=== PATIENT | female | born 1985 | race Caucasian/White ===

== ENCOUNTER → 2018-09-15 | Outpatient (CLI) | payer OTHER ==
[2018-09-15 13:17] VITALS: BP 110/72; PULSE 72; RESP 16; TEMP 98.5; BMI 44.8
--- NOTE | 2018-09-15 13:46 | P.GSHP ---
History of Present Illness H&P Date: 09/15/18 Chief Complaint: abnormal ultrasound of the left breast The patient is a 32 year old white female who is status post bilateral breast reduction at the age of 18. She also had a right breast lesion removed at 17. The patient approximately 3 months ago noted shooting pain to her left nipple. She is uncertain of anything that precipitated the pain. She states that when she was seen in her primary care physician's office there was some nodularity noted in her left breast. The patient herself is uncertain as to where the pain starts in the breast, she has decreased sensation since the bilateral reduction mammoplasty. The patient has no abnormal nipple discharge. Patient has no evidence of any skin changes. No history of any trauma or infection in the breast recently. The pain is not related to her periods. It is sparadic. The pain is mild, 1-2 on a scale of 1-10. The patient has had 4 babies and was unable to breast-feed. The patient drinks 5 cans of Pepsi/day, no tea or coffee. She does not smoke, although she is exposed to second hand smoke. She eats little chocolate. She is not taking bitrth control pills or hormones. She did have an ultrasound of the left breast and this revealed a 0.8 x 0.9 x 1.4 cm lesion in the left breast for which a core biopsy was recommended. She did not have a mammogram. She did not have any radiographic evaluation of the right breast. Family history: 1. paternal uncle: lung cancer Hormonal history: Menarche:14 , breast fed: no, first at 20 periods regular BCP: none hormones:none Past surgical history: 1. Bilateral breast reduction 2. Right breast biopsy Past Medical History: none Social History: smoke: none alcohol: none drugs: none - Constitutional Constitutional: Denies chills, Denies fever - EENT Eyes: denies blurred vision, denies pain Ears: deny: decreased hearing, tinnitus Ears, nose, mouth and throat: Denies headache, Denies sore throat - Breasts Breasts: bilateral: as per HPI - Cardiovascular Cardiovascular: Denies chest pain, Denies shortness of breath - Respiratory Respiratory: Denies cough, Denies 7 - Gastrointestinal Gastrointestinal: Denies abdominal pain, Denies diarrhea, Denies nausea, Denies vomiting - Genitourinary (Female) Genitourinary: Denies dysuria, Denies hematuria - Menstruation Menstruation: Reports period normal - Musculoskeletal Musculoskeletal: Denies myalgias - Integumentary Integumentary: Denies pruritus, Denies rash - Neurological Neurological: Denies numbness, Denies weakness - Psychiatric Psychiatric: Denies anxiety, Denies depression - Endocrine Endocrine: Reports fatigue, Reports weight change - Hematologic/Lymphatic Comment: none - Allergic/Immunologic Comment: none Past Medical History Past Medical History: No Reported History History of Any Multi-Drug Resistant Organisms: None Reported Past Surgical History: Breast Surgery Additional Past Surgical History / Comment(s): Patient has had a bilateral breast reductive surgery and a right breast mass biopsied. Past Anesthesia/Blood Transfusion Reactions: No Reported Reaction Past Psychological History: No Psychological Hx Reported Smoking Status: Never smoker Past Alcohol Use History: None Reported Past Drug Use History: None Reported - Past Family History Mother Family Medical History: No Reported History Medications and Allergies Home Medications Medication Instructions Recorded Confirmed Type Cyanocobalamin (Vitamin B-12) 5,000 mcg PO 09/15/18 History [Vitamin B-12] Allergies Allergy/AdvReac Type Severity Reaction Status Date / Time No Known Allergies Allergy Verified 09/15/18 13:10 Surgical - Exam Vital Signs Temp Pulse Resp BP Pulse Ox 98.5 F 72 16 110/72 99 09/15/18 13:11 09/15/18 13:11 09/15/18 13:11 09/15/18 13:11 09/15/18 13:11 BMI 44.8 - General obese - Eyes normal ocular movement - ENT no hearing loss, no congestion - Neck no masses, trachea midline - Respiratory normal expansion, normal respiratory effort, clear to percussion, clear to auscultation - Cardiovascular Rhythm: regular Heart Sounds: normal: S1, S2 - Abdomen Abdomen: soft, non tender, no guarding, no rigid, no rebound - Integumentary normal turgor - Neurologic no disoriented, no combative - Musculoskeletal normal gait, normal posture - Psychiatric oriented to time, oriented to person, oriented to place, speech is normal, memory intact breast exam: Right breast: Multiple positional exam fibrocystic changes, changes related to scar tissue from reduction mammoplasty Lateral aspect of the breast reveals a dark nevus which is been recommended be removed Right axilla: No adenopathy of concern Left breast: Multi-positional exam fibrocystic changes, changes related to scar tissue from reduction mammoplasty Left axilla: No adenopathy of concern Results Ultrasound results reviewed Assessment and Plan Assessment: Impression: 1. Ultrasound abnormality left breast 2. Status post bilateral reduction mammoplasty, she was larger than a 44DDD, she is now a 38 DD 3. Shooting pain left breast 4. Family history of cancer 5. Skin lesion right breast with some concern We have discussed the causes of breast pain. We discussed that caffeine may be related to her discomfort. And also to secondhand smoke may be related to the discomfort. She has been provided a book regarding breast pain. She is encouraged to stop caffeine intake. Plan: 1. Bilateral mammogram 2. Ultrasound core biopsy of left breast 3. Excision of skin lesion in the office 4. Follow-up after ultrasound of the left breast Cc: Dr. Chela Watson, Zaynab Choudhary N.P.
== END | disposition home or self-care (01) ==
LOC: WWCWWP 13:04
PROVIDERS: ATTEND Surgery
DX: Z53.9 Procedure and treatment not carried out, unspecified reason (principal)

== ENCOUNTER → 2018-10-10 | Outpatient (CLI) | payer OTHER ==
--- NOTE | 2018-10-10 09:51 | MM ---
Reason for exam: clinical finding. Lump or Thickening in left breast. History: Bilateral breast reduction in 2001. Right breast excisional (bnign) 2001 Physical Findings: Nurse did not find any significant physical abnormalities on exam. MG Diagnostic Mammo w CAD ROSE MARY Bilateral CC, MLO, and spot compression CC view(s) were taken. LM view(s) were taken of the left breast. No prior studies available for comparison. There are scattered fibroglandular densities. Bilateral mammoplasty changes. Lateral posterior asymmetric density right CC view. Left lower inner quadrant focal asymmetry likely related to mammoplasty changes but a 6 month follow up is recommended. Scattered round dermal calcifications. Patients outside ultrasound is reviewed. No mammographic correlate for the ultrasound finding at the site of pain. A 2ND look left inner quadrant ultrasound will be performed. ASSESSMENT: Incomplete: need additional imaging evaluation, BI-RAD 0 Incomplete: need additional imaging evaluation, BI-RAD 0 of the left breast. Probably benign, BI-RAD 3 finding in the right breast. RECOMMENDATION: Ultrasound of the left breast. Follow-up diagnostic mammogram of the right breast in 6 months.
--- NOTE | 2018-10-10 10:06 | USB ---
Reason for exam: clinical finding. US Breast Limited LT Left breast limited breast ultrasound including focal area of concern, retroareolar and axilla demonstrates a mixed hypoechoic lesion at 6 o'clock measuring 1.4cm x 1.6cm x 0.8cm irregular shaped. This is directly underlying the patients scar. It has a comma - shaped appearance and corresponds to the area seen at 4 o'clock on outside ultrasound. Likely also corresponds to the mammographic findings. At the axilla there is a benign oval node that measures 2.4 x 2.1 x 1.3 cm. ASSESSMENT: Probably benign, BI-RAD 3 RECOMMENDATION: Ultrasound of the left breast in 6 months.
== END | disposition home or self-care (01) ==
LOC: RADMAMWWP 07:07
PROVIDERS: ATTEND Surgery
DX: R92.8 Other abnormal and inconclusive findings on diagnostic imaging of breast (principal)
CPT/HCPCS: 77066

== ENCOUNTER → 2020-12-18 | Outpatient (CLI) | payer OTHER ==
--- NOTE | 2020-12-18 11:34 | CONS ---
CONSULTATION DATE OF SERVICE: 12/18/2020 This 34-year-old lady has been evaluated in [facility] for possible obstructive sleep apnea-hypopnea syndrome. HISTORY OF PRESENT ILLNESS/SLEEP-WAKE EVALUATION: Patient's usual sleep schedule is from 10:30 p.m. to 5:30 or 5:40 a.m. on weekdays and from 11 p.m. to 7 a.m. on weekends. No problems with falling asleep. No TV in bedroom. The patient usually sleeps on the side position, with loud snoring and witnessed episodes of stopped breathing during sleep. The patient has awakenings from sleep with snoring, choking and nocturia 2 times per night. No history of hypnagogic hallucinations, sleep paralysis or cataplexy. During the day, the patient feels very sleepy. Gilman Sleepiness Scale is in very high range of 19. She also has problems with memory and irritability. PAST MEDICAL HISTORY: Mostly negative. PAST SURGICAL HISTORY: Breast reduction surgery and surgery to remove a lump from the right breast. SOCIAL HISTORY: Negative for smoking or using alcohol. MEDICATIONS: None. FAMILY HISTORY: Positive for sleep apnea in her mother. Thyroid problems and asthma in the family. REVIEW OF SYSTEMS: No fevers. No double vision. No recent chest pain. No shortness of breath. No abdominal pain. No bleeding episodes. No blood in the urine. No seizure episodes. Multiple awakenings from sleep, significant excessive daytime sleepiness, loud snoring. PHYSICAL EXAMINATION: GENERAL: Pleasant lady without distress. VITAL SIGNS: BP 116/78, HR 73, RR 12, height 5 feet and 3 inches, weight 261.2 pounds, body mass index 46.2, temperature 97.6, oxygen saturation at room air 96%. HEENT: PERRLA, EOMI, evaluation of oropharynx showed tongue protrudes midline. Wide pillars. Mallampati II. NECK: Supple, no JVD. Thyroid is not palpable. Neck is wide; 17 inches in circumference. LUNGS: Clear to percussion and to auscultation. Good air exchange. No wheezing or rhonchi. HEART: S1, S2 regular. No murmurs, gallops, or rubs. ABDOMEN: Obese. EXTREMITIES: No clubbing or cyanosis. BEAD FLIPPER: Awake, alert, and oriented X3. Cranial nerves 2 to 7 intact. There is no fasciculation or atrophy. noted. No focal deficits observed. IMPRESSION: 1. Loud snoring, witnessed episodes of stopped breathing during sleep, awakenings from sleep with choking and nocturia, wide neck, 17 inches in circumference, extremely high Gilman Sleepiness Scale, sleepiness; obstructive sleep apnea-hypopnea syndrome. 2. Gilman Sleepiness Scale is 19, which dictates necessity to include narcolepsy and idiopathic hypersomnia in differential diagnosis. 3. Obesity; body mass index 46.2. 4. Status post breast reduction. 5. Status post right breast lump removed. PLAN: 1. Polysomnography for evaluation of patient's breathing during sleep. 2. CPAP/BiPAP titration if sleep study confirms obstructive sleep apnea-hypopnea syndrome. 3. Preferable position during sleep on the side. 4. No driving if patient feels any sleepiness. 5. I will see patient for follow up visit to explain results of testing and following plan. Thank you very much for referring this patient for consultation. Sincerely, Raza German MD, PhD, FAASM Diplomat of [employer] Sleep Medicine Board of [employer] Specialist [facility] MMODL / SASHAN: [id number] /
== END ==
LOC: SLEEP 10:10
PROVIDERS: ATTEND Internal Medicine
DX: G47.33 Obstructive sleep apnea (adult) (pediatric) (principal); R35.1 Nocturia; E66.9 Obesity, unspecified; Z68.42 Body mass index [BMI] 45.0-49.9, adult; Z98.890 Other specified postprocedural states
CPT/HCPCS: 99211

== ENCOUNTER → 2023-06-03 | Outpatient (CLI) | payer OTHER ==
--- NOTE | 2023-06-03 22:49 | US ---
EXAMINATION TYPE: US abdomen limited DATE OF EXAM: 06/03/2023 COMPARISON: NONE CLINICAL INDICATION: Female, 37 years old with history of R22.2 SWELLING MASS LUMP R10.11 R UP QUAD P AIN; "bulging" area of concern at epigastric region. Assess for hernia at location of: upper abdominal/ epigastric region TECHNIQUE: Real-time scanning was performed by the communications operator utilizing Valsalva and additional dyn amic maneuvers to assess for hernia. Operations Leader notes: Limited due to patient body habitus FINDINGS AND IMPRESSION: Patients AOC scanned, no evidence of hernia seen with ultrasound today.
--- NOTE | 2023-06-03 22:50 | US ---
EXAMINATION TYPE: US gallbladder DATE OF EXAM: 06/03/2023 COMPARISON: NONE CLINICAL INDICATION: Female, 37 years old with history of R22.2 SWELLING MASS LUMP R10.11 R UP QUAD P AIN; RUQ pain after eating TECHNIQUE: Multiple sonographic images of the right upper quadrant are obtained. FINDINGS: EXAM MEASUREMENTS: Liver Length: 18.1 cm Gallbladder Wall: 0.2 cm CBD: 0.3 cm Right Kidney: 14.4 x 4.9 x 5.5 cm INFORMATION SYSTEMS SPECIALIST NOTES:*Limited due to bowel gas and patient body habitus Pancreas: Tail obscured by overlying bowel gas Liver: wnl Gallbladder: No stones seen. Wall WNL. Evidence for sonographic Gannon's sign: No CBD: wnl Right Kidney: Prominent in size likely normal variation if the patient is tall. No hydronephrosis or masses seen. IMPRESSION: No gallstones or biliary ductal dilatation.
== END | disposition home or self-care (01) ==
LOC: RADUSWWP 06:58
PROVIDERS: ATTEND Surgery Plastic and Reconstructive Surgery
DX: R22.2 Localized swelling, mass and lump, trunk (principal); R10.11 Right upper quadrant pain
CPT/HCPCS: 76705

== ENCOUNTER 2023-12-26 22:53 | Emergency (ER) | payer OTHER ==
[2023-12-26 22:59] VITALS: RESP 18; TEMP 98.3
--- NOTE | 2023-12-26 23:25 | ED ---
General Adult HPI - General Chief complaint: Chest Pain Stated complaint: Anxiety Time Seen by Provider: 12/26/23 22:58 Source: patient, EMS Mode of arrival: EMS Limitations: no limitations - History of Present Illness Initial comments: Patient is a 38-year-old female no significant past medical history presenting today for chest pain. Describes it as squeezing pain that comes on randomly. Has been happening for the last 48 hours. Yesterday the [place] [address] and had to tap puller due to onset of chest pain. She sat with EMS crew and did deep breathing which improved her symptoms, then was taken to [facility] for further workup. There patient had ultrasound her left lower extremity done for DVT, as she has swelling in her left lower extremity for the last week, which was negative. Does state that she has had a previous injury to the left ankle and has been on her feet more than usual over the last week. States that no EKG or further imaging or blood work was done yesterday. Today while sitting at dinner chest tightness return, she felt lightheaded, felt tingling go down her arms. Chest tightness does not radiate to the back. She denies fever, chills, cough, hemoptysis, nasuea, vomiting, diarrhea, abdominal pain. Did feel sweaty with onset of symptoms. Patient is a non-smoker and has no history of hyperlipidemia, hypertension or diabetes. Patient's father did have a heart attack at the age of 53. No other history of prior CVA or AL in first-degree family members. Patient does states she is in an increased amount of stress recently as her son was just diagnosed with a brain tumor this week and her had to relocate for work so she is the sole caregiver for her 4 children currently. - Related Data Home Medications Medication Instructions Recorded Confirmed Cyanocobalamin (Vitamin B-12) 5,000 mcg PO 09/15/18 [Vitamin B-12] Previous Rx's Medication Instructions Recorded hydrOXYzine HCL 10 mg PO Q6H PRN 3 Days #10 tab 12/27/23 Allergies Allergy/AdvReac Type Severity Reaction Status Date / Time No Known Allergies Allergy Verified 10/10/18 08:03 Review of Systems ROS Statement: Those systems with pertinent positive or pertinent negative responses have been documented in the HPI. ROS Other: All systems not noted in ROS Statement are negative. Past Medical History Past Medical History: No Reported History History of Any Multi-Drug Resistant Organisms: None Reported Past Surgical History: Breast Surgery Additional Past Surgical History / Comment(s): Patient has had a bilateral breast reductive surgery and a right breast mass biopsied. Past Anesthesia/Blood Transfusion Reactions: No Reported Reaction Past Psychological History: No Psychological Hx Reported Smoking Status: Never smoker Past Alcohol Use History: None Reported Past Drug Use History: None Reported - Past Family History Mother Family Medical History: No Reported History General Exam - General Exam Comments Initial Comments: PE: CONSTITUTIONAL: No apparent distress, well appearing SKIN: Warm, dry, no jaundice, hives or petechiae EYES: Pupils are equally round, extraocular movements intact without nystagmus, clear conjunctiva, non-icteric sclera HENT: Normocephalic, atraumatic, moist mucus membranes, oropharynx clear without exudates NECK: , Full range of motion, normal appearance, no lymphadenopathy or thyromegaly PULMONARY: Clear to auscultation without wheezes, rhonchi, or rales, normal excursion, no accessory muscle use and no stridor CARDIOVASCULAR: Regular rate, rhythm, normal S1 and S2. No appreciated murmurs, rubs or gallops. Strong radial pulses with intact distal perfusion. No lower extremity edema MUSCULOSKELETAL: Extremities have no gross deformity, no edema, redness, or swelling. NEUROLOGIC:_a/o x 3, GCS 15, normal mentation and speech. Moves all extremities x 4 without motor or sensory deficit PSYCHIATRIC:_anxious mood and affect, speech is rapid, thought process is clear and linear Limitations: no limitations Course Vital Signs 12/26/23 12/27/23 12/27/23 22:54 01:59 03:00 Temperature 98.3 F Pulse Rate 80 78 75 Respiratory 18 18 18 Rate Blood Pressure 110/65 116/68 110/70 O2 Sat by Pulse 97 98 98 Oximetry Medical Decision Making - Medical Decision Making Was pt. sent in by a medical professional or institution (, PA, SOCIAL SERVICES, urgent care, hospital, or halfway...) When possible be specific @ -No Did you speak to anyone other than the patient for history (EMS, parent, family, police, friend...)? What history was obtained from this source @ -No Did you review nursing and triage notes (agree or disagree)? Why? @ -I reviewed and agree with nursing and triage notes Were old charts reviewed (outside hosp., previous admission, EMS record, old EKG, old radiological studies, urgent care reports/EKG's, halfway records)? Report findings @Patient did have an ultrasound of her abdomen and right upper quadrant performed in May of this year which showed no acute process Differential Diagnosis (chest pain, altered mental status, abdominal pain women, abdominal pain men, vaginal bleeding, weakness, fever, dyspnea, syncope, headache, dizziness, GI bleed, back pain, seizure, CVA, palpatations, mental health, musculoskeletal)? Differential diagnosis remains broad however top considerations include ACS, PE, pneumothorax, pneumonia, esophageal spasm, GERD, pancreatitis, panic attack, this is not all-inclusive list. Patient's symptoms are highly suggestive of panic attack especially in the setting of patient's recent increase stress in addition to on exam patient anxious appearing, rapid speech, improvement with deep breathing, however will obtain cardiac workup to assess for the above. EKG interpreted by me (3pts min.). @ -Sinus rhythm, rate 68 bpm, KS interval 145 ms, QRS duration 106 ms, QT/QTc 390/407 ms, normal axis, no ST elevations or depressions, no Q waves present, no arrhythmia X-rays interpreted by me (1pt min.). @ -no consolidations or cardiomegaly CT interpreted by me (1pt min.). @ -None done U/S interpreted by me (1pt. min.). @ -None done What testing was considered but not performed or refused? (CT, X-rays, U/S, labs)? Why? @ -None What meds were considered but not given or refused? Why? @ -None Did you discuss the management of the patient with other professionals (professionals i.e. , PA, SOCIAL SERVICES, lab, RT, psych nurse, social media job titles, drag down, teacher, earth science technical officer, community case manager)? Give summary @ -No Was smoking cessation discussed for >3mins.? @ -No Was critical care preformed (if so, how long)? @ -No Were there social determinants of health that impacted care today? How? (Homelessness, low income, unemployed, alcoholism, drug addiction, transportation, low edu. Level, literacy, decrease access to med. care, penitentiary, rehab)? @ -No Was there de-escalation of care discussed even if they declined (Discuss DNR or withdrawal of care, Hospice)? @ -No What co-morbidities impacted this encounter? (DM, HTN, Smoking, COPD, CAD, C ancer, CVA, ARF, Chemo, Hep., AIDS, mental health diagnosis, sleep apnea, morbid obesity)? @ -Obesity Was patient admitted / discharged? Hospital course, mention meds given and route, prescriptions, significant lab abnormalities, going to OR and other pertinent info. @ -Hospital course Patient is a pleasant 38-year-old female presenting today for episodes of chest tightness, palpitations with associated feelings of anxiety in setting of increased life stressors. On my assessment VSS, patient well appearing, she is anxious appearing and speech is somewhat rapid, cardiopulmonary exam reassuring, no thyromegaly on exam, no LE edema noted. Discussed plan with patient for cardiac workup, TSH, D dimer, will decide on chest imaging once D dimer results so that patient does not receive 2 sets of imaging to the chest, aspirin and medication for anxiety. Patient is agreeable with plan of care. Labs and imaging reviewed. Grossly within normal limits. Abnormal values not concerning for acute pathology related to presenting complaint. HEART score: 1. Repeat troponin was not obtained as patient's chest pain has been ongoing for 48 hours and would expect troponin rise if secondary to ACS at this point. Updated patient to reassuring findings. Discussed importance of close follow up and symptomatic care for feelings of stress and anxiety. In my medical judgment there is currently no evidence of an immediate life- threatening or surgical condition. Discharge is therefore indicated at this time. Discharge treatment instructions, follow up instructions, and appropriate emergency department return precautions were discussed with the patient and/or medical decision maker. Patient and/or medical decision maker expressed understanding of and agreed with the treatment plan, follow up instructions, and emergency department return precaution. All patient's and/or medical decision ma ker's questions were answered. The patient was advised that a small risk still exists that a serious condition could develop and was therefore instructed to return to the ED for any changes in symptoms, persistent symptoms, inability to obtain proper follow-up or for any further concerns. Patient received verbal and written instructions for this condition. Undiagnosed new problem with uncertain prognosis? @ -No Drug Therapy requiring intensive monitoring for toxicity (Heparin, Nitro, Insulin, Cardizem)? @ -No Were any procedures done? @ -No Diagnosis/symptom? @Panic attack Acute, or Chronic, or Acute on Chronic? @ -Acute Uncomplicated (without systemic symptoms) or Complicated (systemic symptoms)? @ -Complicated Side effects of treatment? @ -No Exacerbation, Progression, or Severe Exacerbation? @ -No Poses a threat to life or bodily function? How? (Chest pain, [place], AL, pneumonia, PE, COPD, DKA, ARF, appy, cholecystitis, CVA, Diverticulitis, Homicidal, Suicidal, threat to staff... and all critical care pts) @Unlikely - Lab Data Result diagrams: 12/26/23 23:55 12/26/23 23:55 Lab Results 12/26/23 12/26/23 12/26/23 Range/Units 23:55 23:55 23:55 WBC 10.4 (3.8-10.6) k/uL RBC 4.34 (3.80-5.40) m/uL Hgb 12.6 (11.4-16.0) gm/dL Hct 37.2 (34.0-46.0) % MCV 85.6 (80.0-100.0) fL MCH 29.0 (25.0-35.0) pg MCHC 33.9 (31.0-37.0) g/dL RDW 13.6 (11.5-15.5) % Plt Count 299 (150-450) k/uL MPV 8.4 Neutrophils % 72 % Lymphocytes % 20 % Monocytes % 5 % Eosinophils % 2 % Basophils % 1 % Neutrophils # 7.5 (1.3-7.7) k/uL Lymphocytes # 2.0 (1.0-4.8) k/uL Monocytes # 0.5 (0-1.0) k/uL Eosinophils # 0.2 (0-0.7) k/uL Basophils # 0.1 (0-0.2) k/uL PT 10.4 (10.0-12.5) sec INR 0.9 (<1.2) APTT 23.9 (22.0-30.0) sec D-Dimer 0.55 (<0.60) mg/L FEU Sodium 139 (137-145) mmol/L Potassium 4.3 (3.5-5.1) mmol/L Chloride 109 H (98-107) mmol/L Carbon Dioxide 23 (22-30) mmol/L Anion Gap 7 mmol/L BUN 12 (7-17) mg/dL Creatinine 0.52 (0.52-1.04) mg/dL Est GFR (CKD-EPI)AfAm >90 (>60 ml/min/1.73 sqM) Est GFR (CKD-EPI)NonAf >90 (>60 ml/min/1.73 sqM) Glucose 121 H (74-99) mg/dL Calcium 9.3 (8.4-10.2) mg/dL Total Bilirubin 0.5 (0.2-1.3) mg/dL AST 33 (14-36) U/L ALT 22 (4-34) U/L Alkaline Phosphatase 53 (38-126) U/L Troponin I (0.000-0.034) ng/mL NT-Pro-B Natriuret Pep 64 pg/mL Total Protein 6.9 (6.3-8.2) g/dL Albumin 4.3 (3.5-5.0) g/dL Lipase 153 (23-300) U/L 12/26/23 Range/Units 23:55 WBC (3.8-10.6) k/uL RBC (3.80-5.40) m/uL Hgb (11.4-16.0) gm/dL Hct (34.0-46.0) % MCV (80.0-100.0) fL MCH (25.0-35.0) pg MCHC (31.0-37.0) g/dL RDW (11.5-15.5) % Plt Count (150-450) k/uL MPV Neutrophils % % Lymphocytes % % Monocytes % % Eosinophils % % Basophils % % Neutrophils # (1.3-7.7) k/uL Lymphocytes # (1.0-4.8) k/uL Monocytes # (0-1.0) k/uL Eosinophils # (0-0.7) k/uL Basophils # (0-0.2) k/uL PT (10.0-12.5) sec INR (<1.2) APTT (22.0-30.0) sec D-Dimer (<0.60) mg/L FEU Sodium (137-145) mmol/L Potassium (3.5-5.1) mmol/L Chloride (98-107) mmol/L Carbon Dioxide (22-30) mmol/L Anion Gap mmol/L BUN (7-17) mg/dL Creatinine (0.52-1.04) mg/dL Est GFR (CKD-EPI)AfAm (>60 ml/min/1.73 sqM) Est GFR (CKD-EPI)NonAf (>60 ml/min/1.73 sqM) Glucose (74-99) mg/dL Calcium (8.4-10.2) mg/dL Total Bilirubin (0.2-1.3) mg/dL AST (14-36) U/L ALT (4-34) U/L Alkaline Phosphatase (38-126) U/L Troponin I <0.012 (0.000-0.034) ng/mL NT-Pro-B Natriuret Pep pg/mL Total Protein (6.3-8.2) g/dL Albumin (3.5-5.0) g/dL Lipase (23-300) U/L Disposition Clinical Impression: Panic attack Disposition: HOME SELF-CARE Condition: Good Instructions (If sedation given, give patient instructions): Chest Pain (ED), Anxiolysis in Adults (ED) Additional Instructions: Every disease is a spectrum and a small chance still exists that a serious condition could develop, for this reason, please monitor yourself closely for new, changing or worsening symptoms, symptoms that persist worsen or do not improve in the next 72 hours or become more frequent, change in quality of your chest pain, episodes of passing out, difficulty in breathing, lower extremity swelling fever, inability to tolerate/keep down fluids or your medications, inability to follow up with outpatient providers as instructed and should you experience these symptoms or should you have any further concerns for your wellbeing please return to the ED or call 911 immediately. PLEASE call your primary care physician as soon as possible to arrange / discuss plan for followup appointment. Appointment in the next 1-3 days is strongly enc ouraged if possible. PLEASE let us know here before you leave if there is anything further we can do to be of any assistance. Take care and feel Better! Prescriptions: hydrOXYzine HCL 10 mg PO Q6H PRN 3 Days #10 tab PRN Reason: Anxiety Is patient prescribed a controlled substance at d/c from ED?: No If prescribed controlled substance>3 days was MAPS reviewed?: No Referrals: Asiya Sutherland MD [STAFF PHYSICIAN] - 1-2 days
[2023-12-26] MEDS: ASPIRIN 81 MG PO STA (23:26)
[2023-12-26] MEDS: LORazepam 1 MG TAB PO STA (23:26)
[2023-12-27 00:24] LABS: Basophils # (A) 0.1 k/uL (0-0.2); Basophils % (A) 1 %; Eosinophils # (A) 0.2 k/uL (0-0.7); Eosinophils % (A) 2 %; HCT 37.2 % (34.0-46.0); HGB 12.6 gm/dL (11.4-16.0); Lymphocytes % (A) 20 %; MCHC 33.9 g/dL (31.0-37.0); MCV 85.6 fL (80.0-100.0); Mean Platelet Volume 8.4; Monocytes # (A) 0.5 k/uL (0-1.0); Monocytes % (A) 5 %; Neutrophils # (A) 7.5 k/uL (1.3-7.7); Neutrophils % (A) 72 %; Platelet Count 299 k/uL (150-450); RBC 4.34 m/uL (3.80-5.40); RDW 13.6 % (11.5-15.5); WBC 10.4 k/uL (3.8-10.6)
[2023-12-27] MEDS: SODIUM CHLORIDE 0.9% 1,000 ML IV STA (00:47)
[2023-12-27 01:06] LABS: INR 0.9 (<1.2); Partial Thromboplastin Time 23.9 sec (22.0-30.0); Prothrombin Time 10.4 sec (10.0-12.5)
[2023-12-27 01:25] LABS: ALT 22 U/L (4-34); AST 33 U/L (14-36); African American GFR (CKD) >90 (>60 ml/min/1.73 sqM); Albumin 4.3 g/dL (3.5-5.0); Alkaline Phosphatase 53 U/L (38-126); Blood Urea Nitrogen 12 mg/dL (7-17); Calcium 9.3 mg/dL (8.4-10.2); Chloride 109 mmol/L (98-107); Glucose 121 mg/dL (74-99); Lipase 153 U/L (23-300); Non-African American GFR(CKD) >90 (>60 ml/min/1.73 sqM); Potassium 4.3 mmol/L (3.5-5.1); Sodium 139 mmol/L (137-145); Total Bilirubin 0.5 mg/dL (0.2-1.3); Total Protein 6.9 g/dL (6.3-8.2)
[2023-12-27 01:32] LABS: NT-Pro-B-Type Natriuretic Pept 64 pg/mL
[2023-12-27 01:39] LABS: Anion Gap 7 mmol/L; Carbon Dioxide 23 mmol/L (22-30)
--- NOTE | 2023-12-27 01:45 | XR ---
EXAMINATION TYPE: XR chest 2V DATE OF EXAM: 12/27/2023 COMPARISON: NONE HISTORY: Difficulty in breathing. TECHNIQUE: Frontal and lateral views of the chest are obtained. FINDINGS: Overlying bra strap is present. There is no focal air space opacity, pleural effusion, or pneumothorax seen. The cardiac silhouette size is within normal limits. The osseous structures are intact. IMPRESSION: No acute cardiopulmonary process. [facility], , 12/27/2023 1:43 AM
[2023-12-27 03:24] VITALS: BP 110/70; PULSE 75
== END 2023-12-27 03:20 | disposition home or self-care (01) ==
LOC: EC 22:53
DX: F41.0 Panic disorder [episodic paroxysmal anxiety] (principal)
CPT/HCPCS: 36415; 71046; 80053; 83690; 83880; 84484; 85025; 85379; 85610; 85730; 93005; 99284